=== PATIENT | male | born 1960 | race Caucasian/White ===

== ENCOUNTER 2019-10-08 15:32 | Emergency (ER) | payer BC ==
[2019-10-08] MEDS ORDERED: DILTIAZEM DRIP BOLUS FROM BAG 1 MG SOLN IV ONE ×2 (15:40→16:17)
[2019-10-08] MEDS ORDERED: SODIUM CHLORIDE 0.9% 1,000 ML IV STA (15:40)
--- NOTE | 2019-10-08 15:41 | ED ---
Arrhythmia/Palpitations HPI - General Chief Complaint: Arrhythmia/Palpitations Stated Complaint: SVT Time Seen by Provider: 10/08/19 15:40 Source: patient, RN notes reviewed, old records reviewed Mode of arrival: wheelchair Limitations: no limitations - History of Present Illness Initial Comments: This is a 59-year-old male presenting in mild distress elevated heart rate dizziness. 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 Patient denying any significant current chest pain maybe a little diaphoresis when the symptoms started this morning but they have since resolved. He did eat lunch has had no nausea vomiting or any other complaints MD Complaint: rapid heart beat, palpitations, irregular heart beat -: hour(s) Context: occurred during rest Arrhythmia History: atrial fibrillation, SVT, history of ablation Associated Symptoms: diaphoresis Treatments Prior to Arrival: propafenone/rythmol, beta-lázaro - Related Data Allergies Allergy/AdvReac Type Severity Reaction Status Date / Time No Known Allergies Allergy Verified 10/08/19 15:38 Review of Systems ROS Statement: Those systems with pertinent positive or pertinent negative responses have been documented in the HPI. ROS Other: All systems not noted in ROS Statement are negative. Past Medical History Past Medical History: Atrial Fibrillation Additional Past Medical History / Comment(s): WPW Past Surgical History: Orthopedic Surgery Additional Past Surgical History / Comment(s): heart ablation x 3 General Exam Limitations: no limitations General appearance: alert, in no apparent distress, anxious Head exam: Present: atraumatic, normocephalic, normal inspection Eye exam: Present: normal appearance, PERRL, EOMI. Absent: scleral icterus, conjunctival injection, periorbital swelling ENT exam: Present: normal exam, mucous membranes moist Neck exam: Present: normal inspection. Absent: tenderness, meningismus, lymphadenopathy Respiratory exam: Present: normal lung sounds bilaterally. Absent: respiratory distress, wheezes, rales, rhonchi, stridor Cardiovascular Exam: Present: tachycardia, irregular rhythm, normal heart sounds. Absent: systolic murmur, diastolic murmur, rubs, gallop, clicks GI/Abdominal exam: Present: soft, normal bowel sounds. Absent: distended, tenderness, guarding, rebound, rigid Extremities exam: Present: normal inspection, full ROM, normal capillary refill. Absent: tenderness, pedal edema, joint swelling, calf tenderness Back exam: Present: normal inspection Neurological exam: Present: alert, oriented X3, CN II-XII intact Psychiatric exam: Present: normal affect, normal mood Skin exam: Present: warm, dry, intact, normal color. Absent: rash Course Vital Signs 10/08/19 10/08/19 10/08/19 15:33 16:25 16:29 Temperature 97.9 F Pulse Rate 176 H 141 H 75 Respiratory 18 18 Rate Blood Pressure 120/84 125/98 116/70 O2 Sat by Pulse 96 99 98 Oximetry - Reevaluation(s) Reevaluation #1: 10/08/19 16:49 Medical record. It is reviewed Reevaluation #2: 10/08/19 16:[address] Ramirez regarding patient while where patient's condition Dr. Ramirez did send patient to the office to the ER today for evaluation regarding this SVT with history of WPW Reevaluation #3: 10/08/19 16:55 Patient did have successful cardioversion with Cardizem - Consultations Consultation #1: Spoke with Dr. Marcus who will see patient in the office today EKG Findings - EKG Comments: EKG Findings:: EKG is SVT 136 QRS 106 QTc 518. Repeat EKG. After Cardizem. Normal sinus rhythm of 72 UT 164 QRS 120 QTc 473 Medical Decision Making - Medical Decision Making 29 male DF presenting in SVT he did convert to sinus rhythm with Cardizem patient given Lovenox dosage for risk of thromboembolic stroke will be discharged C cardiology this afternoon - Lab Data Result diagrams: 10/08/19 15:55 10/08/19 15:55 Lab Results 10/08/19 10/08/19 10/08/19 Range/Units 15:55 15:55 15:55 WBC 10.1 (3.8-10.6) k/uL RBC 5.18 (4.30-5.90) m/uL Hgb 15.2 (13.0-17.5) gm/dL Hct 46.3 (39.0-53.0) % MCV 89.4 (80.0-100.0) fL MCH 29.3 (25.0-35.0) pg MCHC 32.8 (31.0-37.0) g/dL RDW 12.7 (11.5-15.5) % Plt Count 290 (150-450) k/uL Neutrophils % 64 % Lymphocytes % 25 % Monocytes % 6 % Eosinophils % 2 % Basophils % 1 % Neutrophils # 6.4 (1.3-7.7) k/uL Lymphocytes # 2.6 (1.0-4.8) k/uL Monocytes # 0.6 (0-1.0) k/uL Eosinophils # 0.2 (0-0.7) k/uL Basophils # 0.1 (0-0.2) k/uL PT 9.9 (9.0-12.0) sec INR 0.9 (<1.2) APTT 25.3 (22.0-30.0) sec Sodium 142 (137-145) mmol/L Potassium 4.6 (3.5-5.1) mmol/L Chloride 109 H (98-107) mmol/L Carbon Dioxide 21 L (22-30) mmol/L Anion Gap 12 mmol/L BUN 15 (9-20) mg/dL Creatinine 0.66 (0.66-1.25) mg/dL Est GFR (CKD-EPI)AfAm >90 (>60 ml/min/1.73 sqM) Est GFR (CKD-EPI)NonAf >90 (>60 ml/min/1.73 sqM) Glucose 94 (74-99) mg/dL Calcium 9.5 (8.4-10.2) mg/dL Phosphorus 3.9 (2.5-4.5) mg/dL Magnesium 2.1 (1.6-2.3) mg/dL Total Bilirubin 0.9 (0.2-1.3) mg/dL AST 29 (17-59) U/L ALT 19 (4-49) U/L Alkaline Phosphatase 80 (38-126) U/L Creatine Kinase 87 (55-170) U/L Troponin I (0.000-0.034) ng/mL NT-Pro-B Natriuret Pep pg/mL Total Protein 7.7 (6.3-8.2) g/dL Albumin 4.6 (3.5-5.0) g/dL TSH 1.310 (0.465-4.680) mIU/L 08/12/20 08/12/20 Range/Units 15:55 15:55 WBC (3.8-10.6) k/uL RBC (4.30-5.90) m/uL Hgb (13.0-17.5) gm/dL Hct (39.0-53.0) % MCV (80.0-100.0) fL MCH (25.0-35.0) pg MCHC (31.0-37.0) g/dL RDW (11.5-15.5) % Plt Count (150-450) k/uL Neutrophils % % Lymphocytes % % Monocytes % % Eosinophils % % Basophils % % Neutrophils # (1.3-7.7) k/uL Lymphocytes # (1.0-4.8) k/uL Monocytes # (0-1.0) k/uL Eosinophils # (0-0.7) k/uL Basophils # (0-0.2) k/uL PT (9.0-12.0) sec INR (<1.2) APTT (22.0-30.0) sec Sodium (137-145) mmol/L Potassium (3.5-5.1) mmol/L Chloride (98-107) mmol/L Carbon Dioxide (22-30) mmol/L Anion Gap mmol/L BUN (9-20) mg/dL Creatinine (0.66-1.25) mg/dL Est GFR (CKD-EPI)AfAm (>60 ml/min/1.73 sqM) Est GFR (CKD-EPI)NonAf (>60 ml/min/1.73 sqM) Glucose (74-99) mg/dL Calcium (8.4-10.2) mg/dL Phosphorus (2.5-4.5) mg/dL Magnesium (1.6-2.3) mg/dL Total Bilirubin (0.2-1.3) mg/dL AST (17-59) U/L ALT (4-49) U/L Alkaline Phosphatase (38-126) U/L Creatine Kinase (55-170) U/L Troponin I 0.031 (0.000-0.034) ng/mL NT-Pro-B Natriuret Pep 495 pg/mL Total Protein (6.3-8.2) g/dL Albumin (3.5-5.0) g/dL TSH (0.465-4.680) mIU/L - EKG Data -: EKG Interpreted by Me (Documented in EKG portion of chart) - Radiology Data Radiology results: report reviewed (Chest x-rays negative for acute disease), image reviewed Critical Care Time Critical Care Time: Yes Total Critical Care Time: 31 Disposition Clinical Impression: Tludf-Pgmcszabw-Xdans (WPW) pattern, Atrial fibrillation, Supraventricular tachycardia Disposition: HOME SELF-CARE Condition: Good Instructions (If sedation given, give patient instructions): Mbfxz-Bqpyzjdup-Juddw Syndrome (ED), Supraventricular Tachycardia (ED) Is patient prescribed a controlled substance at d/c from ED?: No Referrals: Judy Sepulveda MD [Primary Care Provider] - 1-2 days
[2019-10-08] MEDS ORDERED: DILTIAZEM 125 MG in SODIUM CHLORIDE 0.9% 100 ML IV SCH (15:45)
[2019-10-08 16:04] LABS: Basophils # (A) 0.1 k/uL (0-0.2); Basophils % (A) 1 %; Eosinophils # (A) 0.2 k/uL (0-0.7); Eosinophils % (A) 2 %; HCT 46.3 % (39.0-53.0); HGB 15.2 gm/dL (13.0-17.5); Lymphocytes # (A) 2.6 k/uL (1.0-4.8); Lymphocytes % (A) 25 %; MCH 29.3 pg (25.0-35.0); MCHC 32.8 g/dL (31.0-37.0); MCV 89.4 fL (80.0-100.0); Mean Platelet Volume 7.8; Monocytes # (A) 0.6 k/uL (0-1.0); Monocytes % (A) 6 %; Neutrophils # (A) 6.4 k/uL (1.3-7.7); Neutrophils % (A) 64 %; Platelet Count 290 k/uL (150-450); RBC 5.18 m/uL (4.30-5.90); RDW 12.7 % (11.5-15.5); WBC 10.1 k/uL (3.8-10.6)
[2019-10-08 16:15] LABS: ALT 19 U/L (4-49); AST 29 U/L (17-59); African American GFR (CKD) >90 (>60 ml/min/1.73 sqM); Albumin 4.6 g/dL (3.5-5.0); Alkaline Phosphatase 80 U/L (38-126); Anion Gap 12 mmol/L; Blood Urea Nitrogen 15 mg/dL (9-20); Calcium 9.5 mg/dL (8.4-10.2); Carbon Dioxide 21 mmol/L (22-30); Chloride 109 mmol/L (98-107); Creatine Kinase 87 U/L (55-170); Glucose 94 mg/dL (74-99); Magnesium 2.1 mg/dL (1.6-2.3); Non-African American GFR(CKD) >90 (>60 ml/min/1.73 sqM); Phosphorus 3.9 mg/dL (2.5-4.5); Potassium 4.6 mmol/L (3.5-5.1); Sodium 142 mmol/L (137-145); Total Bilirubin 0.9 mg/dL (0.2-1.3); Total Protein 7.7 g/dL (6.3-8.2)
[2019-10-08] MEDS ORDERED: HEPARIN SODIUM,PORCINE 5,000 UNIT/ML 1 ML VIAL IV ONE (16:17)
[2019-10-08] MEDS ORDERED: HEPARIN SODIUM,PORCINE 5,000 UNIT/ML 1 ML VIAL IV PRN (16:17)
[2019-10-08 16:25] LABS: INR 0.9 (<1.2); Partial Thromboplastin Time 25.3 sec (22.0-30.0); Prothrombin Time 9.9 sec (9.0-12.0)
--- NOTE | 2019-10-08 16:26 | XR ---
EXAMINATION TYPE: XR chest 2V DATE OF EXAM: 10/08/2019 CLINICAL HISTORY: Weakness. A. fib. TECHNIQUE: Frontal and lateral views of the chest are obtained. COMPARISON: None FINDINGS: The cardiomediastinal silhouette is within normal limits for size. Pulmonary vasculature i s minimally prominent. There is no focal air space opacity, pleural effusion, or pneumothorax seen. D egenerative changes of the spine. IMPRESSION: Borderline pulmonary vascular congestion.
[2019-10-08] MEDS: METOPROLOL TARTRATE 5 MG/5 ML VIAL IVP STA ×2 (16:29→18:25)
[2019-10-08] MEDS ORDERED: HEPARIN SOD,PORK IN 0.45% NACL 25,000 UNIT in 0.45% NACL 1 250ML.BAG IV SCH (16:30)
[2019-10-08] MEDS ORDERED: ENOXAPARIN 120 MG/0.8 ML SYRINGE SQ STA (16:48)
[2019-10-08 16:56] LABS: Appearance,Urine Clear (Clear); Bilirubin,Urine Negative (Negative); Blood,Urine Negative (Negative); Color,Urine Light Yellow; Glucose,Urine (UA) Negative (Negative); Ketones,Urine Trace (Negative); Leukocyte Esterase,Urine Negative (Negative); Nitrite,Urine Negative (Negative); Protein,Urine Negative (Negative); Specific Gravity,Urine 1.009 (1.001-1.035); Urobilinogen,Urine <2.0 mg/dL (<2.0)
[2019-10-08 17:29] VITALS: BP 129/89; PULSE 81; RESP 19; TEMP 98
== END 2019-10-08 17:26 | disposition home or self-care (01) ==
LOC: EC 15:32
DX: I45.6 Pre-excitation syndrome (principal); I48.91 Unspecified atrial fibrillation; I47.1 Supraventricular tachycardia
CPT/HCPCS: 36415; 93005; 83880; 80053; 82550; 83735; 84100; 84443; 84484; 85025; 85610; 85730; 81003; 71046; 99291; 96365; 96376; 96372; J1650

== ENCOUNTER 2020-01-08 09:56 | Day surgery (SDC) | payer BC ==
[2020-01-06 16:48] VITALS: BMI 36.1
[~2020-01-08 09:56] MED LIST: SODIUM CHLORIDE 0.9% 1,000 ML IV SCH
[2020-01-08] MEDS ORDERED: SODIUM CHLORIDE 0.9% 1,000 ML IV ONE (10:33)
[2020-01-08] MEDS ORDERED: PROTAMINE SULFATE 10 MG/ML 5 ML VIAL IV ONE (12:51)
[2020-01-08] MEDS ORDERED: ROCURONIUM 10 MG/ML (10 ML VIAL) IV ONE (12:51)
[2020-01-08] MEDS ORDERED: PROPOFOL 10 MG/ML 20 ML VIAL IV ONE (12:51)
[2020-01-08] MEDS ORDERED: ePHEDrine SULFATE/0.9% NACL/PF 50 MG/5 ML SYRINGE IV ONE (12:51)
[2020-01-08] MEDS ORDERED: fentaNYL (PF) 50 MCG/ML 2 ML AMP ONE (12:51)
[2020-01-08] MEDS ORDERED: SUCCINYLCHOLINE CHLORIDE 100 MG/5 ML SYR IV ONE (12:51)
[2020-01-08] MEDS ORDERED: HEPARIN SODIUM,PORCINE 10,000 UNIT/ML 1 ML VIAL ONE (12:51)
[2020-01-08] MEDS ORDERED: MIDAZOLAM 2 MG/2 ML VIAL ONE (12:51)
[2020-01-08] MEDS ORDERED: LIDOCAINE 1% INJ 10MG/ML (20 ML MDV) ONE (13:20)
[2020-01-08] MEDS ORDERED: LIDOCAINE 1% INJ 10MG/ML (20 ML MDV) SQ ONE (13:47)
[2020-01-08] MEDS ORDERED: HEPARIN SODIUM (1,000 UNIT/ML) 1,000 UNIT in SODIUM CHLORIDE 0.9% 1,000 ML IRRIGATION ONE ×4 (13:48)
[2020-01-08] MEDS ORDERED: HEPARIN SOD,PORK IN 0.45% NACL 25,000 UNIT in 0.45% NACL 1 250ML.BAG IV ONE (14:11)
[2020-01-08] MEDS ORDERED: LACTATED RINGERS 1,000 ML IV ONE (17:50)
--- NOTE | 2020-01-08 18:47 | P.EPPROC ---
- EP Procedure Note Electrophysiology Procedure Note: Diagnosis Atrial fibrillation, symptomatic, refractory to therapy Paroxysmal Result No left atrial appendage mass seen on intracardiac echo Successful A. fib ablation/pulmonary vein isolation of all veins using cryo- ablation Complete entrance block in all 4 veins confirmed No evidence for phrenic nerve injury Esophageal deflection YES , right-sided esophagus Electrical cardioversion with a synchronized shock across the chest NO Procedure details Patient was brought to the EP lab in a fasting state. Written informed consent was obtained prior to the procedure. Procedure performed under general anesthesia After initial muscle relaxant use, muscle relaxants were not given thereafter in order to assess phrenic nerve during procedure. Patient prepped and draped as per protocol Full cryo-set up with standard preparation of the cryoablation tools done. Femoral Venous access obtained on the right and left groins Venous and arterial Sheaths placed. Diagnostic catheters for the high right atrium, phrenic nerve stimulation and pacing, His bundle, RV and coronary sinus placed Intracardiac echo catheter placed. Long sheath placed in the right atrium Left and right transseptal catheterization performed under intracardiac echo guidance. Intravenous heparin with aCT above 300 Later, catheter positioning and balloon positioning in the left atrium, under intracardiac echo guidance Diagnostic EP study with Drug infusion Coronary sinus pacing and recording Atrial pacing performed from the high right atrium and the coronary sinus RV pacing Transseptal catheterization performed RA pressure 17/7/12 LA pressure 27/11/16 Transseptal catheterization performed with standard sheath. The cryoablation sheath was then placed with an over the wire exchange without any acute complications. All 4 pulmonary veins were isolated in the following sequence: Left superior followed by left inferior followed by right superior followed by right inferior The cryo-ablation balloon was placed at the os of each vein 1.5 mL of IV dye was injected to confirm an occluded vein Goal during cryoablation was to achieve complete occlusion of the pulmonary vein, achieve -30 degrees C at 30 seconds and achieve -40 degrees C at 60 seconds and a time to effect of less than 60-90 seconds, . If not the balloon was repositioned to obtain this result After completion of Cryoblation with durations from 180-240 seconds, entrance block was confirmed with the Attain circular catheter in a roving fashion around the antrum of the pulmonary veins Phrenic nerve pacing was performed from the SVC, right innominate vein area and diaphragm voltage was monitored. Diaphragmatic contractions were also monitored manually for strength of contraction. Parameter goals for each cryo freeze Complete occlusion of the appropriate vein -30 degrees C by 30 seconds -40 degrees C by 60 seconds Minimum between minus 40-55 degrees C Thaw time greater than 10 seconds Balloon visualized by intracardiac echo The esophagus was intubated. Esophageal Temperature monitoring with a CIRCA catheter formed. Esophageal deflection for hypothermia of the esophagus below 30 degrees C Left superior pulmonary vein Complete isolation, entrance block Left inferior pulmonary vein Complete isolation, entrance block Right superior pulmonary vein, during phrenic nerve pacing Complete isolation, entrance block Right inferior pulmonary vein, during phrenic nerve pacing Complete isolation, entrance block At the end of the procedure the Achieve catheter was once again used to check for entrance block Phrenic nerve stimulation was performed to confirm diaphragmatic stimulation the end of the procedure Cine fluoroscopy was performed at the very end of the procedure to confirm movement of both diaphragms with inspiration and expiration Following that coronary sinus and atrial stimulation was performed. High dose Isuprel was employed atrial fibrillation was induced with high dose Isuprel 3-D electro anatomic mapping was performed the pulmonary veins are completely isolated a septal linear ablation was performed and during completion of this line in its midportion termination of atrial fibrillation occurred This line was completed High dose Isuprel was employed Burst stimulation from the right atrium was performed no further atrial fibrillation was induced Please see ablation for WPW/left posterior lateral accessory pathway separately At the end of the procedure the patient was extubated Heparin was reversed Venous sheaths were removed and hemostasis assured Procedures performed (PVI - CRYO Ablation) Diagnostic EP study with attempted arrhythmia induction CS pacing and recording Left and right transseptal catheterization 3D mapping) Intracardiac echocardiography Pulmonary vein isolation with transseptal and comprehensive EPS, [id number] Linear ablation, left atrium, [id number] Drug Infusion +[id number]
[2020-01-08] MEDS ORDERED: IOPAMIDOL-370 100ML BTL INJ ONE (18:53)
--- NOTE | 2020-01-08 18:54 | P.EPPROC ---
- EP Procedure Note Electrophysiology Procedure Note: Following A. fib ablation attention was turned to his excessive pathway with bidirectional conduction properties He had undergone accessory pathway ablation about 14 years back which had failed at [facility] Subsequently he had a repeat procedure the [facility] which was also unsuccessful Activation mapping was performed while performing atrial pacing from the coronary sinus on either side of the accessory pathway Differential pacing was performed the earliest ventricular activation site was identified With atrial pacing maneuvers orthodromic reentry was induced Activation mapping was performed and the earliest atrial activation site was identified This was fairly close to the ventricular activation site identified and RF ablations at 40 W with good contact force were applied. However accessory pathway conduction could not be interrupted despite a detailed and accurate mapped involving the earliest site of activation in the ventricle as well as in the atrium both during atrial pacing and orthodromic reentry The Joseph sinus is also mapped during atrial pacing and RF ablation was applied here but this was unsuccessful Thereafter a diagnostic catheter was placed transseptal E across the mitral valve into the left ventricle and activation mapping of the atrium and the coronary sinus was performed during LV pacing The earliest activation site was found in the coronary sinus on its epicardial aspect of the from the endocardial contact surface At this site the VA conduction times a very short, virtually fused RF ablation at this site at 20 W resulted in interruption of excessive pathway conduction bidirectionally, within 3 seconds of the start of the RF lesion RF lesions were applied around the successful site and thereafter there was no evidence for accessory pathway conduction at all both on and off Isuprel However this required very detailed mapping of the atrium mitral annulus and the ventricular aspect as well as the coronary sinus during atrial pacing or any sinus pacing LV pacing and during orthodromic reentry This is a long procedure requiring mapping in multiple ways to delineate the exact location of the accessory pathway Impression epicardial left-sided accessory pathway, posterior lateral mitral annulus taking a circuitous route from the atrium, then around the coronary sinus, then to the ventricle. The patient or the procedure well without any acute complications
[2020-01-08] MEDS ORDERED: ACETAMINOPHEN IV (For NPO) 1,000 MG in EMPTY BAG 1 BAG IVPB ONE (18:59)
[2020-01-08] MEDS ORDERED: HYDROcodone/APAP 5-325MG 1 EACH TAB PO PRN (18:59)
[2020-01-08] MEDS ORDERED: ACETAMINOPHEN TAB 325 MG TAB PO PRN (18:59)
[2020-01-08] MEDS ORDERED: HYDROmorphone 0.5 MG/0.5 ML SYRINGE IVP ONE (19:05)
[2020-01-08] MEDS: LACTATED RINGERS 1,000 ML IV SCH (22:13)
[2020-01-08] MEDS: APIXABAN 5 MG TAB PO SCH (22:18)
[2020-01-08 23:55] VITALS: TEMP 97.8
[2020-01-09] MEDS: LACTATED RINGERS 1,000 ML IV SCH (06:53)
[2020-01-09 07:41] VITALS: BP 121/74; PULSE 78; RESP 16
[2020-01-09] MEDS: APIXABAN 5 MG TAB PO SCH (08:35)
--- NOTE | 2020-01-09 09:37 | CT ---
EXAMINATION TYPE: CT brain wo con DATE OF EXAM: 01/09/2020 COMPARISON: None HISTORY: 59-year-old male with right eye visual changes TECHNIQUE: Examination was done in axial plane without intravenous contrast. Coronal and sagittal r econstructions performed. CT DLP: 1121 mGycm Automated exposure control for dose reduction was used. FINDINGS: There is no evidence of acute intracranial hemorrhage, acute ischemic changes, mass, mass-effect, or extra-axial fluid collection. There is no effacement of cerebral sulci or basal subarachnoid cister ns. There is no hydrocephalus. There is no midline shift. Mooney-white matter distinction is preserv ed. Nonspecific pineal gland calcifications. Leftward nasal septal deviation. Trace mucosal thickening fl oor of the right maxillary sinus. Trace mucosal thickening anterior ethmoid air cells. Orbits and lily bes are intact. IMPRESSION: No acute intracranial abnormality seen.
[2020-01-09 09:53] LABS: Cholesterol 171 mg/dL (<200); HDL Cholesterol 37 mg/dL (40-60); LDL Cholesterol,Calculated 118 mg/dL (0-99); Triglycerides 82 mg/dL (<150)
--- NOTE | 2020-01-09 12:04 | P.DS ---
Providers Attending physician: Dejon Marcus Primary care physician: Judy Sepulveda Assessment: Patient is doing well this morning when I saw him. He has a sore throat no chest discomfort no dizziness lightheadedness or palpitations. Later on he had a brief episode of visual disturbance in the right eye but this was a fleeting nature and by the time he went for CAT scan the symptoms had resolved He's been ambulating around the room he does not appear short of breath. His groins are tender bilaterally with is no hematoma no swelling The subclavian access site is also healed well Normal heart sounds no murmurs no gallops no rub Breath sounds are clear no rhonchi no crackles Extremity warm no edema Computed tomography scan of the brain does not show any intracranial abnormality there is no evidence for intracranial hemorrhage or ischemic changes no midline shift Physical lead ECG today showed sinus rhythm and normal ST segments narrow QRS Impression Paroxysmal atrial fibrillation and paroxysmal atrial tachycardia status post cryoablation of the pulmonary veins Induction of atrial fibrillation with high dose Isuprel and atrial pacing Successful ablation of in atrial fibrillation focus, extrapulmonary along the posterior interatrial septum, . AV node ablation of the septum completed thereafter RF ablation along the septum resulting in termination of the induced atrial fibrillation Thereafter his bidirectional excessive pathway was mapped to the posterior lateral mitral annulus Despite multiple detailed during orthodromic reentry, atrial pacing and coronary sinus pacing, endocardial ablation at the earliest site did not result in illumination of the accessory pathway. This area of early activation was confirmed with LV pacing and once again endocardial ablations were unsuccessful despite 40 W of power in good contact force The coronary sinus was mapped during LV pacing and in early site with a very short VA interval, almost fused VA interval was noted but along the outside aspect of the coronary sinus, This myocardial strand/accessory pathway to consent to disrobe from the atrium/posterior lateral LA around the outside/epicardial aspect of the coronary sinus and back to the LV Successful RF ablation site was AWAY from the endocardial contact surface of the coronary sinus Following that testing was performed on high dose Isuprel No atrial fibrillation could be induced No orthodromic reentry could be induced There was no evidence for accessory pathway conduction or of plan Stop flecainide Continue ELIQUIS for 3 months. This was discussed with the patient in detail and he understands the risk of stroke if he stops ELIQUIS I will see him again in about a week Plan - Discharge Summary Discharge Rx Participant: No New Discharge Prescriptions: No Action Ibuprofen [Motrin Ib] 600 mg PO Q8H PRN PRN Reason: Pain Flecainide Acetate [Tambocor] 100 mg PO Q12HR Acetaminophen [Tylenol Extra Strength] 500 - 1,000 mg PO DIRECTED PRN PRN Reason: Pain Multivit-Min/FA/Lycopen/Lutein [Centrum Silver Tablet] 1 each PO DAILY Apixaban [Eliquis] 5 mg PO BID Discharge Medication List Acetaminophen [Tylenol Extra Strength] 500 - 1,000 mg PO DIRECTED PRN 01/06/20 [History] Apixaban [Eliquis] 5 mg PO BID 01/06/20 [History] Flecainide Acetate [Tambocor] 100 mg PO Q12HR 01/06/20 [History] Ibuprofen [Motrin Ib] 600 mg PO Q8H PRN 01/06/20 [History] Multivit-Min/FA/Lycopen/Lutein [Centrum Silver Tablet] 1 each PO DAILY 01/06/20 [History]
== END 2020-01-09 15:05 | disposition home or self-care (01) ==
LOC: CATHEP 09:56 → 3NCARDOBS 18:26 → CATHEP 01-09 15:05
PROVIDERS: ATTEND Internal Medicine Clinical Cardiac Electrophysiology
DX: I48.0 Paroxysmal atrial fibrillation (principal); I47.1 Supraventricular tachycardia; I45.6 Pre-excitation syndrome; Z79.01 Long term (current) use of anticoagulants; Z79.899 Other long term (current) drug therapy; Z72.0 Tobacco use
CPT/HCPCS: 93623; 93662; 93613; 93656; 93657; 85347; 80061; 70450; C1769 ×4; C1894 ×2; C1760; C1730 ×3; C1759; C1893 ×2; C1733; C1766; C1732; J2250; J2720; J1644 ×3; J2001; J3010; J0131; J0330; J2704; J1170; Q9967

== ENCOUNTER 2020-02-26 10:00 | Emergency (ER) | payer BC ==
[2020-02-26 10:08] VITALS: TEMP 98.1
[2020-02-26] MEDS ORDERED: SODIUM CHLORIDE 0.9% 1,000 ML IV STA (10:24)
[2020-02-26 10:46] LABS: Basophils # (A) 0.1 k/uL (0-0.2); Basophils % (A) 1 %; Eosinophils # (A) 0.2 k/uL (0-0.7); Eosinophils % (A) 3 %; HCT 42.9 % (39.0-53.0); HGB 14.4 gm/dL (13.0-17.5); Lymphocytes # (A) 1.5 k/uL (1.0-4.8); Lymphocytes % (A) 28 %; MCH 29.6 pg (25.0-35.0); MCHC 33.7 g/dL (31.0-37.0); MCV 87.9 fL (80.0-100.0); Mean Platelet Volume 7.2; Monocytes # (A) 0.3 k/uL (0-1.0); Monocytes % (A) 6 %; Neutrophils # (A) 3.2 k/uL (1.3-7.7); Neutrophils % (A) 59 %; Platelet Count 266 k/uL (150-450); RBC 4.88 m/uL (4.30-5.90); RDW 12.1 % (11.5-15.5); WBC 5.5 k/uL (3.8-10.6)
[2020-02-26 10:51] LABS: INR 0.9 (<1.2); Partial Thromboplastin Time 27.3 sec (22.0-30.0); Prothrombin Time 9.8 sec (9.0-12.0)
[2020-02-26 10:52] LABS: ALT 21 U/L (4-49); AST 22 U/L (17-59); African American GFR (CKD) >90 (>60 ml/min/1.73 sqM); Alkaline Phosphatase 74 U/L (38-126); Anion Gap 6 mmol/L; Blood Urea Nitrogen 9 mg/dL (9-20); Carbon Dioxide 25 mmol/L (22-30); Chloride 109 mmol/L (98-107); Glucose 106 mg/dL (74-99); Magnesium 1.9 mg/dL (1.6-2.3); Non-African American GFR(CKD) >90 (>60 ml/min/1.73 sqM); Potassium 4.1 mmol/L (3.5-5.1); Sodium 140 mmol/L (137-145); Total Bilirubin 0.7 mg/dL (0.2-1.3); Total Protein 7.4 g/dL (6.3-8.2)
--- NOTE | 2020-02-26 10:56 | ED ---
Arrhythmia/Palpitations HPI - General Chief Complaint: Arrhythmia/Palpitations Stated Complaint: AFIB Time Seen by Provider: 02/26/20 10:09 Source: patient, RN notes reviewed Mode of arrival: ambulatory Limitations: no limitations - History of Present Illness Initial Comments: This a 59-year-old male presents emergency Department chief complaint of palpi tations. Patient has history of diabetes and multiple ablations. Patient states he had an ablation by Dr. Ramirez last month. Patient states that he was having intermittent woke up with some heart racing. He states that symptoms were not resolving. He states that he is currently on Eliquis to take Eliquis this morning. He states he used to be on flecainide but states that he was discontinued after his last ablation he did take 1 to see if it would help. He states he still feels his heart fluttering. He has no chest pain or shortness of breath. Patient called on-call manager graphic Dr. Craig recommended patient come in for EKG. Patient states that his normal heart rate is in the 60s states that currently in the EDC still feels symptomatic. - Related Data Home Medications Medication Instructions Recorded Confirmed Apixaban [Eliquis] 5 mg PO BID 01/06/20 02/26/20 Multivit-Min/FA/Lycopen/Lutein 1 tab PO DAILY 01/06/20 02/26/20 [Centrum Silver Tablet] Andreina 500 mg PO DAILY 02/26/20 02/26/20 Allergies Allergy/AdvReac Type Severity Reaction Status Date / Time No Known Allergies Allergy Verified 02/26/20 11:13 Review of Systems ROS Statement: Those systems with pertinent positive or pertinent negative responses have been documented in the HPI. ROS Other: All systems not noted in ROS Statement are negative. 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 Absent: tenderness, meningismus, lymphadenopathy Respiratory exam: Present: normal lung sounds bilaterally. Absent: respiratory distress, wheezes, rales, rhonchi, stridor Cardiovascular Exam: Present: regular rate, normal rhythm, normal heart sounds. Absent: systolic murmur, diastolic murmur, rubs, gallop, clicks GI/Abdominal exam: Present: soft, normal bowel sounds. Absent: distended, tenderness, guarding, rebound, rigid Extremities exam: Present: normal capillary refill. Absent: pedal edema, calf tenderness Course Vital Signs 02/26/20 02/26/20 02/26/20 10:04 10:30 11:00 Temperature 98.1 F Pulse Rate 87 86 60 Respiratory 18 20 16 Rate Blood Pressure 134/88 136/88 135/90 O2 Sat by Pulse 96 95 97 Oximetry EKG Findings - EKG Comments: EKG Findings:: EKG #1 performed at time: 14 normal sinus rhythm rate of 66 AK 150 QRS 96 QT/QTC 406/05/2020. The second EKG performed at 10.50 normal sinus rhythm with rate of 68 AK 152 QRS 98 QT/QTC 426/452 Medical Decision Making - Medical Decision Making 59-year-old presented for palpitations EKG is unremarkable 2, troponin negative oxide's within normal limits. Patient we discharged with close follow-up return parameters were discussed. - Lab Data Result diagrams: 02/26/20 10:32 02/26/20 10:32 Lab Results 02/26/20 02/26/20 02/26/20 Range/Units 10:32 10:32 10:32 WBC 5.5 (3.8-10.6) k/uL RBC 4.88 (4.30-5.90) m/uL Hgb 14.4 (13.0-17.5) gm/dL Hct 42.9 (39.0-53.0) % MCV 87.9 (80.0-100.0) fL MCH 29.6 (25.0-35.0) pg MCHC 33.7 (31.0-37.0) g/dL RDW 12.1 (11.5-15.5) % Plt Count 266 (150-450) k/uL MPV 7.2 Neutrophils % 59 % Lymphocytes % 28 % Monocytes % 6 % Eosinophils % 3 % Basophils % 1 % Neutrophils # 3.2 (1.3-7.7) k/uL Lymphocytes # 1.5 (1.0-4.8) k/uL Monocytes # 0.3 (0-1.0) k/uL Eosinophils # 0.2 (0-0.7) k/uL Basophils # 0.1 (0-0.2) k/uL PT 9.8 (9.0-12.0) sec INR 0.9 (<1.2) APTT 27.3 (22.0-30.0) sec Sodium 140 (137-145) mmol/L Potassium 4.1 (3.5-5.1) mmol/L Chloride 109 H (98-107) mmol/L Carbon Dioxide 25 (22-30) mmol/L Anion Gap 6 mmol/L BUN 9 (9-20) mg/dL Creatinine 0.65 L (0.66-1.25) mg/dL Est GFR (CKD-EPI)AfAm >90 (>60 ml/min/1.73 sqM) Est GFR (CKD-EPI)NonAf >90 (>60 ml/min/1.73 sqM) Glucose 106 H (74-99) mg/dL Calcium 9.0 (8.4-10.2) mg/dL Magnesium 1.9 (1.6-2.3) mg/dL Total Bilirubin 0.7 (0.2-1.3) mg/dL AST 22 (17-59) U/L ALT 21 (4-49) U/L Alkaline Phosphatase 74 (38-126) U/L Troponin I (0.000-0.034) ng/mL Total Protein 7.4 (6.3-8.2) g/dL Albumin 4.0 (3.5-5.0) g/dL 02/26/20 Range/Units 10:32 WBC (3.8-10.6) k/uL RBC (4.30-5.90) m/uL Hgb (13.0-17.5) gm/dL Hct (39.0-53.0) % MCV (80.0-100.0) fL MCH (25.0-35.0) pg MCHC (31.0-37.0) g/dL RDW (11.5-15.5) % Plt Count (150-450) k/uL MPV Neutrophils % % Lymphocytes % % Monocytes % % Eosinophils % % Basophils % % Neutrophils # (1.3-7.7) k/uL Lymphocytes # (1.0-4.8) k/uL Monocytes # (0-1.0) k/uL Eosinophils # (0-0.7) k/uL Basophils # (0-0.2) k/uL PT (9.0-12.0) sec INR (<1.2) APTT (22.0-30.0) sec Sodium (137-145) mmol/L Potassium (3.5-5.1) mmol/L Chloride (98-107) mmol/L Carbon Dioxide (22-30) mmol/L Anion Gap mmol/L BUN (9-20) mg/dL Creatinine (0.66-1.25) mg/dL Est GFR (CKD-EPI)AfAm (>60 ml/min/1.73 sqM) Est GFR (CKD-EPI)NonAf (>60 ml/min/1.73 sqM) Glucose (74-99) mg/dL Calcium (8.4-10.2) mg/dL Magnesium (1.6-2.3) mg/dL Total Bilirubin (0.2-1.3) mg/dL AST (17-59) U/L ALT (4-49) U/L Alkaline Phosphatase (38-126) U/L Troponin I <0.012 (0.000-0.034) ng/mL Total Protein (6.3-8.2) g/dL Albumin (3.5-5.0) g/dL Disposition Clinical Impression: Palpitations Disposition: HOME SELF-CARE Condition: Stable Instructions (If sedation given, give patient instructions): Heart Palpitations (ED) Additional Instructions: Please return to the Emergency Department if symptoms worsen or any other concerns. Is patient prescribed a controlled substance at d/c from ED?: No Referrals: Judy Sepulveda MD [Primary Care Provider] - 1-2 days Time of Disposition: 11:50
--- NOTE | 2020-02-26 11:12 | XR ---
EXAMINATION TYPE: XR chest 2V DATE OF EXAM: 02/26/2020 COMPARISON: 10/08/2019 INDICATION: Dysrhythmia TECHNIQUE: Frontal and lateral views of the chest are obtained. FINDINGS: The heart size is normal. The pulmonary vasculature is normal. The lungs are clear. IMPRESSION: 1. No acute pulmonary process.
[2020-02-26 12:05] VITALS: BP 126/90; PULSE 61; RESP 18
== END 2020-02-26 12:03 | disposition home or self-care (01) ==
LOC: EC 10:00
DX: R00.2 Palpitations (principal); I48.91 Unspecified atrial fibrillation; Z79.01 Long term (current) use of anticoagulants; Z87.891 Personal history of nicotine dependence
CPT/HCPCS: 36415; 71046; 80053; 83735; 84484; 85025; 85610; 85730; 93005; 96360; 99285

== ENCOUNTER → 2023-01-17 | Outpatient (CLI) | payer BC ==
[2023-01-17 17:18] LABS: Anion Gap 11.4 mmol/L (4.00-12.00); Basophils # (A) 0.06 X 10*3/uL (0.00-0.10); Basophils % (A) 0.8 %; Carbon Dioxide 23.6 mmol/L (21.6-31.8); Eosinophils # (A) 0.15 X 10*3/uL (0.04-0.35); HCT 43.1 % (39.6-50.0); HGB 14.4 g/dL (13.0-17.0); Lymphocytes # (A) 2.08 X 10*3/uL (0.90-5.00); Lymphocytes % (A) 27.7 %; MCH 28.9 pg (27.0-32.0); MCHC 33.4 g/dL (32.0-37.0); MCV 86.5 FL (80.0-97.0); Mean Platelet Volume 10.4 FL (9.5-12.2); Monocytes # (A) 0.57 X 10*3/uL (0.20-1.00); Monocytes % (A) 7.6 %; NRBC Per 100 WBC 0 X 10*3/uL (0.00-0.01); Neutrophils # (A) 4.62 X 10*3/uL (1.80-7.70); Neutrophils % (A) 61.6 %; Platelet Count 306 X 10*3/uL (140-440); Potassium 4.3 mmol/L (3.5-5.5); RBC 4.98 X 10*6/uL (4.40-5.60)
== END | disposition home or self-care (01) ==
LOC: LABPAT 09:05
PROVIDERS: ATTEND Orthopaedic Surgery Hand Surgery
DX: Z01.812 Encounter for preprocedural laboratory examination (principal); G56.01 Carpal tunnel syndrome, right upper limb
CPT/HCPCS: 36415; 80051; 85025

== ENCOUNTER 2023-01-31 07:23 | Day surgery (SDC) | payer BC ==
--- NOTE | 2023-01-30 08:43 | P.HPOR ---
History of Present Illness H&P Date: 01/30/23 Subjective: This is a 62 year old male that presents today for initial evaluation regarding a year history of progressively worsening left hand paresthesias in the thumb, index, middle and ring fingers. The patient has tried bracing with little relief. He notes the hand goes numb when driving and sleeping. They deny any inciting event or neck pain. Physical Examination: LUE: AIN/PIN/Radial/Ulnar/Median motor intact. Radial/Ulnar/Median SILT. 2+/4 Radial/Ulnar pulses palpated. 5/5 APB, 5/5 FDI. Negative Finkelsteins, negative CMC grind, positive Durkan's compression. 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 The patient has failed conservative treatment and would like to pursue a left endoscopic vs open carpal tunnel release. Risks and benefits of surgery including bleeding, infection, damage to surrounding tissue, need for further surgery, possible need to convert to open procedure, residual numbness were discussed and the patient wished to go forward with surgery. 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 History of Any Multi-Drug Resistant Organisms: None Reported Past Surgical History: Orthopedic Surgery Additional Past Surgical History / Comment(s): heart ablation x 4,knee scope pins to hand and fingers, Past Anesthesia/Blood Transfusion Reactions: No Reported Reaction Smoking Status: Former smoker Medications and Allergies Home Medications Medication Instructions Recorded Confirmed Type Multivit-Min/FA/Lycopen/Lutein 1 tab PO DAILY 01/06/20 01/26/23 History [Centrum Silver Tablet] Aspirin 325 mg PO DAILY PRN 01/26/23 01/26/23 History Ibuprofen [Motrin] 400 mg PO Q6HR PRN 01/26/23 01/26/23 History Zinc(Unk) 1 tab PO DAILY 01/26/23 01/26/23 History Allergies Allergy/AdvReac Type Severity Reaction Status Date / Time No Known Allergies Allergy Verified 01/26/23 09:47 Physical Examination Osteopathic Statement: *. No significant issues noted on an osteopathic structural exam other than those noted in the History and Physical/Consult.
[~2023-01-31 07:23] MED LIST changes: +DEXAMETHASONE SOD PHOSPHATE 4 MG/ML 1 ML VIAL IV ONE; +HYDROmorphone 0.5 MG/0.5 ML SYRINGE IVP PRN; +LACTATED RINGERS 1,000 ML IV SCH; +LIDOCAINE 1% (10MG/ML) FOR IV START INTRADERMA PRN; +MIDAZOLAM 2 MG/2 ML VIAL IV PRN; +ONDANSETRON 4 MG/2 ML VIAL IVP ONE; +Pre Op ABX Message 1 EACH MISC MISCELLANE ONE; -SODIUM CHLORIDE 0.9% 1,000 ML IV SCH
[2023-01-31 07:56] VITALS: TEMP 97.6
[2023-01-31] MEDS ORDERED: PROPOFOL 10 MG/ML 20 ML VIAL IV ONE (08:22)
[2023-01-31] MEDS ORDERED: MIDAZOLAM 2 MG/2 ML VIAL ONE (08:22)
[2023-01-31] MEDS ORDERED: LIDOCAINE 1% INJ 10MG/ML (20 ML MDV) ONE (08:22)
[2023-01-31] MEDS ORDERED: fentaNYL (PF) 50 MCG/ML 2 ML AMP ONE (08:22)
[2023-01-31] MEDS ORDERED: BUPIVACAINE (PF) 0.5% 30 ML VIAL SQ ONE ×2 (08:24→08:29)
[2023-01-31] MEDS ORDERED: LIDOCAINE 2% INJ 20 MG/ML SQ ONE ×2 (08:24→08:29)
--- NOTE | 2023-01-31 08:43 | P.OP ---
Date of Procedure: 01/31/23 Preoperative Diagnosis: Left carpal tunnel syndrome Postoperative Diagnosis: Left carpal tunnel syndrome Procedure(s) Performed: Left endoscopic carpal tunnel release Anesthesia: MAC Surgeon: Elias Dubon Estimated Blood Loss (ml): 0 Pathology: none sent Condition: stable Disposition: PACU Description of Procedure: This is a 62 year old male who presents today for a left endoscopic carpal tunnel release after having failed conservative treatment in the past. Risks and benefits of surgery were discussed with the patient including bleeding, damage to surrounding tissue, infection, need to convert to open procedure, need for further surgery as well as risks of anesthesia including pulmonary embolism and even and the patient wished to proceed with surgical intervention. The patients was seen in the pre-operative area by myself. Consent and H&P were completed and updated. The correct extremity was marked in the pre-operative area by myself and all other questions were answered. Operative Narrative: The patient was brought to the operating room by the department of anesthesia. They remained on the portable stretcher and a rolling hand table was brought to the side of the operative extremity. Pre-operative time out was performed indicating the correct patient, procedure and laterality. All in the room agreed. The patient was then drifted off to sleep by the department of anesthesia. MAC anesthesia was utilized and a 50:50 mixture of 1% Lidocaine and 0.5% bupivacaine was injected into the subcutaneous tissues of the palmar skin, 8ccs total. A nonsterile tourniquet was then applied to the operative extremity and the left upper extremity was then prepped and draped in normal sterile fashion. The operative extremity was the exsanguinated with an esmarch bandage and the tourniquet was inflated to 250mmHg. 15 blade scalpel was utilized to make a transverse incision on the palmar skin just ulnar to the palmaris longus tendon at the level of the distal wrist crease. Ragnell retractor was then placed radially and blunt dissection was performed to reveal the distal forearm fascia. This was lifted with fine Cruzito pick ups and Littler tenotomy scissors were then used to open the forearm fascia transversely and a double skin hook was then placed. Hamate finder was placed into the carpal tunnel and then sequential sized dilators were inserted followed by the synovial elevator to separate the flexor tenosynovium from the undersurface of the transverse carpal ligament and a washboard texture was felt. The Micro[employer]ire endoscopic carpal tunnel release system gun was the then inserted into the carpal tunnel hugging the deep portion of the transverse carpal ligament in line with the base of the ring finger. Transverse fibers of the ligament were directly visualized. Pressure was applied on the palm to reveal the distal extent of the transverse carpal ligament. The blade was then deployed and the distal half of the transverse carpal ligament was released. The scope was then brought distal again and remaining transverse fibers were incised with the blade. The proximal half of the transverse carpal ligament was then divided and again the scope was advanced distal and remaining transverse fibers were incised with the blade. The radial and ulnar leaflets were directly visualized and mobile consistent with complete release. Tenotomy scissors were then utilized to release the remaining distal forearm fascia under direct visualization taking care to preserve the palmar cutaneous branch of the median nerve. Skin closure was performed with interrupted 4-0 Monocryl suture followed by steri strips. Sterile dressing was applied consisting 4x4s, Webril, and an aiyana bandage. Tourniquet was let down and the hand immediately was well perfused. The patient was then woken by the department of anesthesia and transferred to PACU in stable condition. Elias Dubon D.O. Orthopedic Hand/Upper Extremity Surgeon
[2023-01-31 09:31] VITALS: BP 107/78; PULSE 71; RESP 16
== END 2023-01-31 09:19 | disposition home or self-care (01) ==
LOC: OR 07:23
PROVIDERS: ATTEND Orthopaedic Surgery Hand Surgery
DX: G56.02 Carpal tunnel syndrome, left upper limb (principal); I48.91 Unspecified atrial fibrillation; Z87.891 Personal history of nicotine dependence; Z79.82 Long term (current) use of aspirin; Z79.899 Other long term (current) drug therapy
CPT/HCPCS: 29848; J2001 ×2; J2250; J1100; J2405; J3010; J2704; J0665